=== PATIENT | female | born 1995 | race Two or more races ===

== ENCOUNTER 2020-12-29 15:27 | Emergency (ER) | payer MEDICAID, OTHER ==
[~2020-12-29] VITALS: Ht 149.9 cm; Wt 53.0 kg
[2020-12-29] MEDS ORDERED: FAMOTIDINE 20MG/2ML VIAL IV STA (15:43)
[2020-12-29] MEDS ORDERED: ONDANSETRON HCL 4MG/2ML INJ IV STA (15:43)
[2020-12-29] MEDS ORDERED: SODIUM CHLORIDE 0.9% 1,000 ML IV ONE (15:45)
[2020-12-29 16:09] LABS: BASOPHILS % 0.3 % (0.0-2.0); HEMATOCRIT. 35.4 % (36.0-48.0); LYMPHOCYTES % 14.3 % (20.0-50.0); MEAN CORPUSCULAR HEMOGLOBIN 28.7 pg (28.0-32.0); MEAN CORPUSCULAR VOLUME 84.8 fL (81.0-99.0); MEAN PLATELET VOLUME 7.3 fl (7.4-10.4); NEUTROPHILS % 80.4 % (40.0-76.0); PLATELET 368 x1000/uL (130-400); RED BLOOD CELL COUNT 4.17 mill/uL (4.2-5.4); RED CELL DISTRIBUTION WIDTH 14.2 % (11.6-14.6)
[2020-12-29 16:11] LABS: CHLORIDE 104 mEq/L (98-107)
[2020-12-29 16:15] LABS: ETHANOL BLOOD < 10 mg/dL
[2020-12-29 16:26] LABS: HCG SCREEN NEGATIVE
[2020-12-29 16:29] VITALS: BP 115/74
[2020-12-29] MEDS ORDERED: POTASSIUM CHLORIDE 20MEQ TABLET SR PO ONE (16:45)
[2020-12-29 18:38] LABS: CLARITY URINE CLOUDY (CLEAR); COLOR URINE DARK YELLOW (YELLOW); KETONES URINE 3+ (NEGATIVE); LEUKOCYTE ESTERASE URINE NEGATIVE (NEGATIVE); NITRITE URINE POSITIVE (NEGATIVE); OCCULT BLOOD URINE 1+ (NEGATIVE); PH URINE 6.5 (4.5-8.0); PROTEIN URINE TRACE (NEGATIVE); SPECIFIC GRAVITY URINE 1.029 (1.005-1.030); UROBILINOGEN URINE 0.2 E.U./dL (0.2-1.0)
[2020-12-29] MEDS ORDERED: ONDA4TAB5 MT (18:42)
[2020-12-29] MEDS ORDERED: CEPH500C2 MT (18:42)
[2020-12-29 18:49] LABS: *AMPHETAMINES SCREEN URINE NEGATIVE (NEGATIVE); *BARBITURATES SCREEN URINE NEGATIVE (NEGATIVE); *BENZODIAZEPINES SCREEN URINE NEGATIVE (NEGATIVE); *COCAINE SCREEN URINE NEGATIVE (NEGATIVE)
[2020-12-29 18:50] LABS: METHADONE URINE SCREEN NEGATIVE (NEGATIVE); OPIATES URINE SCREEN NEGATIVE (NEGATIVE); PHENCYCLIDINE URINE SCREEN NEGATIVE (NEGATIVE)
[2020-12-29 18:51] LABS: CANNABINOID URINE SCREEN PRESUMTIVE POSITIVE (NEGATIVE)
== END 2020-12-29 19:16 | disposition home or self-care (01) ==
LOC: ER 15:27
DX: N39.0 Urinary tract infection, site not specified (principal); R11.10 Vomiting, unspecified; F12.10 Cannabis abuse, uncomplicated; Z98.890 Other specified postprocedural states
CPT/HCPCS: 36415; 80053; 80305; 80320; 81003; 83690; 84703; 85025; 93005; 96361; 96374; 96375; 99284; J2405; J3490; J7030; G0480